=== PATIENT | female | born 1985 | race Caucasian/White ===

== ENCOUNTER → 2022-05-29 | Outpatient (CLI) | payer OTHER, SELFPAY ==
[2022-05-29 09:48] LABS: Hematocrit 33.1 % (37-47); Hemoglobin 10.8 g/dL (12.0-15.0); Mean Corp Hgb Conc 32.6 g/dL (32-36); Mean Corpuscular Volume 85.8 fL (81-99); Mean Platelet Vol. 11.7 fl (6.2-12.0); Platelet Count 181 K/mm3 (150-450); RBC Distribution Width CV 14.1 % (11.6-14.6); RBC Distribution Width SD 43.6 fl (35.1-43.9); Red Blood Count 3.86 M/mm3 (4.2-5.4); White Blood Count 7.7 K/mm3 (4.4-11.0)
[2022-05-29 10:15] LABS: ALB/GLOB Ratio 0.6 RATIO (0.9-2.4); AST(SGOT) 21 U/L (15-37); Alanine Aminotransfer ALT/SGPT 21 U/L (13-56); Albumin, Serum 2.4 g/dL (3.2-5.0); Alkaline Phosphatase 119 U/L (45-117); Anion Gap 9 (5-15); BUN 5 mg/dL (7-18); BUN/Creat Ratio 7.8 RATIO (10-20); Calcium,Total 8.7 mg/dL (8.5-10.1); Chloride 106 mmol/L (98-107); Creatinine, Serum 0.64 mg/dL (0.55-1.02); EST Glomerular Filtration Rate 112 mL/min (>60); Est Glom Filt Rate - Afr Amer 136 mL/min (>60); Globulin 3.8 g/dL (2.2-4.2); Glucose 100 mg/dL (74-106); Potassium 3.8 mmol/L (3.5-5.1); Protein, Total 6.2 g/dL (6.4-8.2); Sodium Level 138 mmol/L (136-145); Uric Acid 4.4 mg/dL (2.6-6.0)
[2022-05-29 10:37] LABS: Protein, Urine (Random) 16.9 mg/dL (<11.9); Protein:Creat Ratio 185 mg/g CRE (0-200)
== END | disposition home or self-care (01) ==
DX: R03.0 Elevated blood-pressure reading, without diagnosis of hypertension (principal)
CPT/HCPCS: 36415; 80053; 82570; 84156; 84550; 85027

== ENCOUNTER 2022-06-04 16:35 | Outpatient (CLI) | payer OTHER, SELFPAY ==
[2022-06-04] VITALS (11 sets, daily range): BP systolic 126–152; BP diastolic 84–92; PULSE 110–127; TEMP 37.2; O2SAT 98–100; BMI 34.2
[2022-06-04 17:23] LABS: Hematocrit 35.3 % (37-47); Hemoglobin 11.4 g/dL (12.0-15.0); Mean Corp Hgb Conc 32.3 g/dL (32-36); Mean Corpuscular Hgb 27.9 pg (27.0-32.0); Mean Corpuscular Volume 86.5 fL (81-99); Mean Platelet Vol. 11.5 fl (6.2-12.0); Platelet Count 194 K/mm3 (150-450); RBC Distribution Width CV 13.9 % (11.6-14.6); RBC Distribution Width SD 43.6 fl (35.1-43.9); Red Blood Count 4.08 M/mm3 (4.2-5.4)
[2022-06-04 17:37] LABS: AST(SGOT) 16 U/L (15-37); Alanine Aminotransfer ALT/SGPT 22 U/L (13-56); Creatinine, Serum 0.59 mg/dL (0.55-1.02); EST Glomerular Filtration Rate 124 mL/min (>60); Est Glom Filt Rate - Afr Amer 150 mL/min (>60); Protein, Urine (Random) 17.7 mg/dL (<11.9); Protein:Creat Ratio 194 mg/g CRE (0-200); Uric Acid 3.5 mg/dL (2.6-6.0)
--- NOTE | 2022-06-06 08:40 | OB.TRI.HP_ITS ---
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 Maternal obesity with BMI of 34. Gestational hypertension. No evidence of preeclampsia. NST is reactive. Labs are normal. Patient is to be discharged home to follow-up for an ultrasound and close follow-up and likely induction at 37 weeks. Report given to her primary digging machine operator.
== END 2022-06-04 18:15 | disposition home or self-care (01) ==
LOC: WPOUT 16:38 → WP 16:38
PROVIDERS: Referring Provider Obstetrics & Gynecology; Visit Provider Obstetrics & Gynecology
DX: O13.3 Gestational [pregnancy-induced] hypertension without significant proteinuria, third trimester (principal); O99.213 Obesity complicating pregnancy, third trimester; Z3A.36 36 weeks gestation of pregnancy
CPT/HCPCS: 36415; 59025; 59050; 82565; 82570; 84156; 84450; 84460; 84550; 85027; 99221; G0378

== ENCOUNTER → 2022-06-11 | Outpatient (CLI) | payer OTHER, SELFPAY ==
[2022-06-11 15:12] LABS: Hematocrit 35.8 % (37-47); Hemoglobin 11.7 g/dL (12.0-15.0); Mean Corp Hgb Conc 32.7 g/dL (32-36); Mean Corpuscular Hgb 27.9 pg (27.0-32.0); Mean Corpuscular Volume 85.4 fL (81-99); Mean Platelet Vol. 10.9 fl (6.2-12.0); POSITIVE MORPHOLOGY YES; Platelet Count 163 K/mm3 (150-450); RBC Distribution Width CV 14.3 % (11.6-14.6); RBC Distribution Width SD 43.7 fl (35.1-43.9); Red Blood Count 4.19 M/mm3 (4.2-5.4); White Blood Count 8.9 K/mm3 (4.4-11.0)
[2022-06-11 15:32] LABS: ALB/GLOB Ratio 0.7 RATIO (0.9-2.4); AST(SGOT) 18 U/L (15-37); Alanine Aminotransfer ALT/SGPT 20 U/L (13-56); Albumin, Serum 2.7 g/dL (3.2-5.0); Alkaline Phosphatase 149 U/L (45-117); Anion Gap 5 (5-15); BUN 7 mg/dL (7-18); Calcium,Total 9.5 mg/dL (8.5-10.1); Chloride 107 mmol/L (98-107); Creatinine, Serum 0.64 mg/dL (0.55-1.02); EST Glomerular Filtration Rate 113 mL/min (>60); Est Glom Filt Rate - Afr Amer 136 mL/min (>60); Globulin 4.1 g/dL (2.2-4.2); Glucose 90 mg/dL (74-106); Potassium 3.8 mmol/L (3.5-5.1); Protein, Total 6.8 g/dL (6.4-8.2); Sodium Level 135 mmol/L (136-145)
[2022-06-11 15:37] LABS: Scan Indicated on CBC? Y/N YES- FLAGS NOTED
== END | disposition home or self-care (01) ==
DX: O10.913 Unspecified pre-existing hypertension complicating pregnancy, third trimester (principal)
CPT/HCPCS: 36415; 80053; 84550; 85027

== ENCOUNTER 2022-06-13 06:48 | Inpatient (IN) | payer OTHER, SELFPAY ==
[2022-06-13] VITALS (25 sets, daily range): BP systolic 95–148; BP diastolic 43–90; PULSE 66–111; RESP 14–16; TEMP 36.4–37.3; O2SAT 97–99; BMI 34.5
[2022-06-13] MEDS: Lactated Ringers 1,000 ML 50 ML IV (07:35)
[2022-06-13 07:48] LABS: Absolute Neutrophil Count 5.1 X10^3/uL (2.0-7.7); Basophil# 0.02 X10^3/uL; Basophil% 0.3 % (0-1); Eosinophil# 0.02 X10^3/uL; Eosinophils% 0.3 % (0-5); Hematocrit 32.8 % (37-47); Lymphocyte % 19.9 % (19-41); Mean Corp Hgb Conc 33.5 g/dL (32-36); Mean Corpuscular Hgb 27.8 pg (27.0-32.0); Monocyte# 0.46 X10^3/uL; Monocyte% 6.5 % (0-10); NRBC Flagged by Analyzer 0 % (0-5); Neutrophil # 5.09 X10^3/uL (2.7-7.7); Neutrophil % 72.4 % (47-70); POSITIVE MORPHOLOGY YES; Platelet Count 174 K/mm3 (150-450); RBC Distribution Width CV 14.1 % (11.6-14.6); RBC Distribution Width SD 42.6 fl (35.1-43.9); Red Blood Count 3.95 M/mm3 (4.2-5.4)
[2022-06-13 07:49] LABS: Differential Indicated SCAN CRITERIA MET
[2022-06-13] MEDS: Oxytocin 15 Units/NS 250ml 15 UNITS/250 ML IV.SOLN 2 UNITS IV (08:00)
--- NOTE | 2022-06-13 08:51 | PCM.HP.OB ---
HPI - General General Date of Admission: 06/13/22 HPI Narrative LAURE SAMPLE, is a 37 F at 37.2 weeks gestation who presents as a scheduled induction of labor for gestational hypertension. She was receiving care with [facility] in [place] with plans to deliver at [facility]. Patient's blood pressures began to increase (140/150's over 90-100'S) and PIH labs completed that were within normal ranges. Patient denies any headaches, vision changes, dizziness, SOB or CP. Maternal Data Information LILLIE Calculator Estimated Delivery Date Method Current WG Current Estimate 07/02/22 Manual 37w 2d [facility] Medical History (Updated 06/13/22 @ 22:54 by Liza Bernal CNM) Gestational HTN Home Medications 06/13/22 [History Last Taken Unknown] aspirin 81 mg capsule mg 06/13/22 [History Last Taken Unknown] Allergy/AdvReac Type Severity Reaction Status Date / Time No Known Allergies Allergy Verified 06/13/22 08:05 Surgical History History of surgery Social History Smoking Status: Never smoker History Elective abortions Hx Para 0 Spontaneous abortions Hx # Term Pregnancies Ectopic pregnancies Hx # Pregnancies Multiple births # of living children Visit Details OB Flowsheet Initial Weight: Not Recorded Date <del>?</del> EGA Weight BP Urine Prot <del>?</del> Glucose FHR FuHt Pres Dilation <del>?</del> Effaced St Visit Note 06/13/22 <del>?</del> 37w 2d 207 lb 7.28 oz 137/89 128/83 136/85 130/81 114/76 131/80 130/80 146/90 133/76 148/68 111/63 113/61 103/68 113/60 114/43 115/73 100/59 100/68 95/62 114/67 <del>?</del> <del>?</del> ROS Eyes Eyes: Denies blurry vision, change in vision or spots in vision ENT HEENT: Denies dizziness or headache(s) Cardiovascular Cardiovascular: Denies abdominal pain, chest pain or dyspnea Respiratory/Chest Respiratory/Chest: Denies cough, dyspnea, shortness of breath at rest or shortness of breath with exertion Gastrointestinal Gastrointestinal: Denies abdominal pain, diarrhea or vomiting Genitourinary Genitourinary: Denies change in urinary stream, difficulty urinating or dysuria Musculoskeletal Musculoskeletal: Reports none Integumentary Integumentary: Denies rash Neurologic Neurologic: Denies dizziness, headache(s), memory loss or weakness Psychiatric Psychiatric: Reports none Vital Signs Vital Signs Vital Signs: 06/13/22 07:44 06/13/22 07:44 Pulse Rate 111 H Blood Pressure 137/89 H BP Systolic 137 BP Diastolic 89 Weight Weight: 207 lb 7.28 oz Body Mass Index (BMI) 34.5 Physical Exam Const alert, oriented x3 and no apparent distress General Appearance: cooperative Orientation / Consciousness: awake Exam Limitations: no limitations HEENT normocephalic Head and Scalp: normal to inspection Eyes General Eye: normal appearance of both eyes Neck full ROM and no lymphadenopathy Lymph Lymphatic: no lymphadenopathy noted Chest inspection of chest normal Resp normal respiratory effort, normal air movement and clear to auscultation bilaterally Effort and Inspection: able to speak in complete sentences and symmetric chest movement Cardio regular rate and regular rhythm GI normal to inspection, nondistended, normoactive bowel sounds Manual OB Exam: presentation cephalic Back/Spine normal ROM Extremity full ROM and no calf tenderness Skin no rashes or lesions noted General Skin Exam: no breakdown Neuro oriented x3 and CN's II-XII intact bilaterally Psych mental status grossly normal and thought process normal Labs Labs Labs: Blood Type O POSITIVE Antibody Screen NEGATIVE Hct 32.8 % (37-47) L Hgb 11.0 g/dL (12.0-15.0) L Syphilis Total Ab Non-reactive Assessment & Plan (1) 37 weeks gestation of : (2) Encounter for induction of labor: (3) Gestational HTN: (4) Anxiety: PLAN: Plan CE- 0.5/60/-3 GBS negative Refusing placement of Steele bulb and vaginal exams Start Pitocin IV at 2 mu/min and increase per policy Desires unmedicated labor and delivery Cat. 1 tracing, NST reactive Blood pressures stable at this time No s/s of preeclampsia Dr. Hodges aware of admission and plan of care
[2022-06-13 09:24] LABS: Syphilis Antibodies Non-reactive
[2022-06-13] MEDS: Sodium Citrate/Citric Acid 30 ML UDC PO (19:07)
[2022-06-13] MEDS: Acetaminophen 500 MG Tablet PO (19:07)
[2022-06-13] MEDS: LACTATED RINGERS 500 ML 999 ML IV (19:10)
--- NOTE | 2022-06-13 19:16 | PCM.PN.OB ---
Subjective Subjective Patient seen at bedside. Feeling contractions more frequently. Declines pain medications or nitrous oxide. Objective Data Objective Data Vital Signs: Vital Signs Temp Pulse BP Pulse Ox 99.0 F 75 148/68 H 99 06/13/22 18:45 06/13/22 18:49 06/13/22 18:49 06/13/22 15:16 Weight: 207 lb 7.28 oz Body Mass Index (BMI) 34.5 Intake & Output: Intake and Output for Last 24 Hours 06/11/22 06/12/22 06/13/22 23:59 23:59 23:59 Intake Total 131.17 / 131.17 Balance 131.17 / 131.17 Lab / Micro Data Result Diagrams: 06/13/22 07:35 Labs: Laboratory Results - last 24 hr 06/13/22 07:35: WBC 7.0, RBC 3.95 L, Hgb 11.0 L, Hct 32.8 L, MCV 83.0, MCH 27.8, MCHC 33.5, RDW Std Deviation 42.6, RDW Coeff of Bernardo 14.1, Plt Count 174, MPV 11.0, Immature Gran % (Auto) 0.600, Neut % (Auto) 72.4 H, Lymph % (Auto) 19.9, [place] % (Auto) 6.5, Eos % (Auto) 0.3, Baso % (Auto) 0.3, Absolute Neuts (auto) 5.1, Absolute Lymphs (auto) 1.40, Nucleated RBC % 0 06/13/22 07:35: Blood Type O POSITIVE, Antibody Screen NEGATIVE 06/13/22 07:35: Syphilis Total Ab Non-reactive Assessment & Plan (1) Anxiety: (2) Gestational HTN: (3) 37 weeks gestation of : (4) Encounter for induction of labor: PLAN: Plan Cat. 1 tracing, NST reactive Blood pressures stable Discussed R/B/A with CE and plan for induction- Verbal consent for CE 0.5/60/-3- no change since admission Recommended placement of ocampo bulb and patient refusing Pitocin at 18 mu/min IV Patient very upset and tearful over no cervical change and receiving Pitocin IV for several hours She is stating she is done with induction and the - would like a primary section. Myself and nursing spent a lot of time discussing R/B of C/S vs. and patient continues to verbalize wanting a primary section. Dr. Hodges notified and will be in route to discuss plan of care with patient
[2022-06-13] MEDS: Cefazolin 2 GM in 0.9% Normal Saline 100 ML IV (19:26)
--- NOTE | 2022-06-13 20:26 | EX.PCM.OBRPT ---
Maternal Data Information Final LILLIE: 07/02/22 Gestational age: 37&2 Details Operative Information Date of Procedure: 06/13/22 Pre-Operative Diagnosis: (1) Gestational hypertension (2) Elective section request Post-Operative Diagnosis: Same Indications Narrative: The patient was taken to the operating room where spinal anesthesia was placed & found to be adequate. She was prepped and draped in the dorsal supine position with a leftward tilt. A Pfannenstiel skin incision was made approximately 2 cm above the symphysis pubis and carried through to the underlying fascia with the scalpel. The fascia was incised incised in the midline and extended laterally with the Garcia scissors. The rectus muscles were in the midline and the peritoneum was entered carefully and bluntly. The peritoneal incision was stretched and the bladder blade was inserted. The uterine incision was made in a low transverse fashion with the scalpel and extended superiorly and inferiorly with blunt dissection. The 's head was brought to the incision in the flexed position and delivered without difficulty. The head was gently guided to allow delivery of the anterior and posterior shoulders. The body then delivered with fundal pressure in the standard fashion. The 3VC cord was clamped and cut in delayed fashion. The was handed off to the waiting pediatric clinical nurse specialist. The placenta was delivered with fundal massage and gentle traction in the standard fashion. The uterus was exteriorized and cleared of clots and debris. The uterine incision was closed with #1 Vicryl suture in a running locked fashion. Monocryl suture was used in an imbricating fashion. The incision was examined and was found to be hemostatic. The uterus was returned to the abdominal cavity. After irrigating the peritoneum was examined & confirmed hemostatic. The rectus muscle was examined and any bleeding was Bovie cauterized. The fascia was closed with PDS suture in a running standard fashion. The subcutaneous tissue was examining and any bleeding was Bovie cauterized. The subcutaneous tissue was reapproximated with interrupted sutures. The skin was closed in a subcuticular fashion by the ROUTING EQUIPMENT TENDER while I was present in the labor & delivery unit. The remainder of the procedure was performed by me with assistance. All sponge, lap, and needle counts were correct. The patient was taken to her room for recovery in a stable condition. Classification: MIGUEL Procedure Type: low transverse reading instructor #1: Kristine Sales Type of Anesthesia: Spinal Antibiotic Given: Ancef 2 grams IV x1 Drain: Steele to straight drain Estimated Blood Loss: 700ml Fluids Replaced: 1000ml Procedure Start Time: 19:51 Procedure Stop Time: 18:29 Findings Description of Procedure: Normal maternal uterus and adnexa Presentation: Positive for Vertex Amniotic Membrane Rupture Type: Artificial Amniotic Fluid Description: Clear Placental Delivery Description: Expressed Placenta Disposition: [facility] Cord Vessel Description: 3 Vessels Cord Entanglement: None A Gender: Female ([place], weight = 5-13) (1 minute): 8 (5 minute): 9 Delayed Cord Clamping: Yes Complications Complications: None
[2022-06-13] MEDS: Oxytocin 15 Units/NS 250ml 15 UNITS/250 ML IV.SOLN 83 UNITS IV (20:40)
[2022-06-13] MEDS: Ketorolac 30 MG/ML Syringe IV (20:59)
[2022-06-13] MEDS: Lactated Ringers 1,000 ML 100 ML IV (23:53)
[2022-06-14] VITALS (10 sets, daily range): BP systolic 100–116; BP diastolic 56–79; PULSE 67–116; RESP 15–18; TEMP 36.2–36.6; O2SAT 97–100
[2022-06-14] MEDS: Ondansetron 4 MG/2 ML Vial IV (01:28)
[2022-06-14] MEDS: 0.9% Saline Lock 10 ML Syringe IV ×3 (01:28→20:41)
[2022-06-14] MEDS: Lactated Ringers 1,000 ML 999 ML IV (03:40)
[2022-06-14] MEDS: Acetaminophen 500 MG Tablet 1000 MG PO ×4 (03:41→20:41)
--- NOTE | 2022-06-14 04:44 | NURSING ---
Pt encouraged to get up for first post op ambulation. Pt has been feeling lighted headed and feeling of passing out. BP has been WNL everytime pt has requested to have it checked. Pt also has been nauseous and had an emesis of 800cc. 1L fluid bolus given at 0330.
[2022-06-14 05:24] LABS: Hematocrit 30.6 % (37-47); Hemoglobin 9.2 g/dL (12.0-15.0); Mean Corp Hgb Conc 30.1 g/dL (32-36); Mean Corpuscular Hgb 27.4 pg (27.0-32.0); Mean Corpuscular Volume 91.1 fL (81-99); Mean Platelet Vol. 11.7 fl (6.2-12.0); Platelet Count 142 K/mm3 (150-450); RBC Distribution Width CV 14.4 % (11.6-14.6); RBC Distribution Width SD 47.4 fl (35.1-43.9); Red Blood Count 3.36 M/mm3 (4.2-5.4); White Blood Count 10.4 K/mm3 (4.4-11.0)
[2022-06-14] MEDS: Enoxaparin 40 MG/0.4 ML Syringe SC (08:05)
[2022-06-14] MEDS: Ketorolac 30 MG/ML Syringe IV ×3 (09:01→21:05)
[2022-06-14] MEDS: Senna/Docusate Sodium 1 Tablet PO (09:57)
--- NOTE | 2022-06-14 10:08 | PCM.PN.OB ---
Subjective Subjective Patient seen at bedside. Denies any pain. Feeling good. without support. Has not been out of bed and will be getting up for the first time soon. Denies any headache, vision changes, dizziness, SOB, or CP. Objective Data Objective Data Vital Signs: Vital Signs Temp Pulse Resp BP Pulse Ox O2 Del Method 97.8 F 71 18 115/79 99 Room Air 06/14/22 07:45 06/14/22 07:45 06/14/22 07:45 06/14/22 07:45 06/14/22 07:45 06/14/22 07:45 Oxygen Delivery Method Room Air Weight: 207 lb 7.28 oz Body Mass Index (BMI) 34.5 Intake & Output: Intake and Output for Last 24 Hours 06/12/22 06/13/22 06/14/22 23:59 23:59 23:59 Intake Total 1328.67 / 1328.67 1250 / 1250 Output Total 800 / 800 1215 / 1215 Balance 528.67 / 528.67 35 / 35 Lab / Micro Data Result Diagrams: 06/14/22 05:12 Labs: Laboratory Results - last 24 hr 06/14/22 05:12: WBC 10.4, RBC 3.36 L, Hgb 9.2 L, Hct 30.6 L, MCV 91.1 D, MCH 27.4, MCHC 30.1 L D, RDW Std Deviation 47.4 H, RDW Coeff of Bernardo 14.4, Plt Count 142 L, MPV 11.7 ROS Eyes Eyes: Denies blurry vision, change in vision or spots in vision ENT HEENT: Denies dizziness or headache(s) Cardiovascular Cardiovascular: Denies abdominal pain, chest pain or dyspnea Respiratory/Chest Respiratory/Chest: Denies cough, dyspnea, shortness of breath at rest or shortness of breath with exertion Gastrointestinal Gastrointestinal: Denies abdominal pain, diarrhea or vomiting Genitourinary Genitourinary: Denies change in urinary stream, difficulty urinating or dysuria Musculoskeletal Musculoskeletal: Reports none Integumentary Integumentary: Denies rash Neurologic Neurologic: Denies dizziness, headache(s), memory loss or weakness Physical Exam Narrative Dressing is dry and intact Const alert and no apparent distress General Appearance: cooperative and comfortable Exam Limitations: no limitations HEENT normocephalic Eyes General Eye: normal appearance of both eyes Neck full ROM General: normal visual inspection Chest Chest: symmetrical chest wall rise Resp normal respiratory effort and normal air movement Effort and Inspection: symmetric chest movement Auscultation: clear to auscultation bilaterally Cardio regular rate and regular rhythm GI normal to inspection, nondistended, normoactive bowel sounds Back/Spine normal ROM Extremity full ROM and no calf tenderness General Extremity: normal exam except as noted Skin no rashes or lesions noted Neuro CN's II-XII intact bilaterally Psych mental status grossly normal Assessment & Plan (1) Gestational HTN: (2) Status post primary low transverse section: (3) Anxiety: (4) Care and examination of lactating mother: PLAN: Plan POD 1 Primary C/S Pain control Ambulate and shower today support BP's stable and within normal ranges Anticipate discharge later tomorrow evening
--- NOTE | 2022-06-14 10:13 | CASEMGMT ---
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 Supplies: Reports well supplied for baby, baby shower missed due to early delivery but reports no needs Childcare: stay at home mother and providing childcare in her home for 2 other children, supportive grandparents and older siblings Transportation: No concerns Programs: None Children services/legal: None Behavioral health: Denies formal diagnoses but does report anxiety and depression during . Pt reports feeling very sick, losing weight, stress, lack of sleep and unplanned expenses throughout that resulted in stress and anxiety. No substance abuse concerns. Some family history of mental health concerns that are undiagnosed with maternal parents. Family/Social stressors: Unplanned difficult , job change, financial concerns during but are now resolved Support: Grandparents, taoist, and friends. very large supportive family reported Reviewed depression, shaken baby and safe sleeping information and resources provided. Patient given resources and referral information for counseling, crisis, and maternal helpline. Pt did report she had been feeling anxious and depressed throughout due to illness, pain, and stressors. Pt reports losing weight, being unable to eat, high blood pressure and heart rate concerns troughout . Pt reports she is older and was unplanned but she is feeling like a different person this morning. Pt apologized for demeanor during labor and delivery. Pt reports feeling very ill and distressed at the time. 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 Pt reports feeling connected with baby and presented appropriately. Pt was eating and reports it has been the first time she has eaten well in months. Pt was screened with depression questions which were negative for findings. Pt denies any feelings of not wanting to be here or SI. Pt was appropriate and presented with positive affect, happy mood, and excited for her older children to meet the baby this evening. No concerns during assessment. Plan: Baby to go home with FOB and MOB and no other services were requested or indicated at this time. Melissa Ayoub ELECTRONIC CONTROLS REPAIRER SUPERVISOR, RETAIL ADVISOR
--- NOTE | 2022-06-15 02:24 | PCM.DC.SUM ---
Providers Date of Admission: 06/13/22 Primary Care Physician: No Primary Care Phys Reason For Visit: PRIMARY Diagnosis Discharge Diagnosis (1) Gestational HTN: Status: Acute Code(s): O13.9 - Gestational [-induced] hypertension without significant proteinuria, unspecified trimester (2) Status post primary low transverse section: Status: Acute Code(s): Z98.891 - History of uterine scar from previous surgery (3) Care and examination of lactating mother: Status: Acute Code(s): Z39.1 - Encounter for care and examination of lactating mother Plan POD 2 Primary C/S Pain control Ambulate and shower today support BP's stable and within normal ranges D/C home with follow up this week in office for BP and incision check Medications at Discharge Home Medications 06/13/22 acetaminophen 500 mg tablet 1,000 mg PO Q6H #0 tabs 06/15/22 ibuprofen 600 mg tablet 600 mg PO Q6H #0 tabs 06/15/22 sennosides 8.6 mg-docusate sodium 50 mg tablet (Stool Softener-Stimulant Laxative) 1 - 2 tab PO DAILY #0 tabs 06/15/22 Hospital Course Operations section Summary of Care Provided Hospital Course: Patient had section. Hospital course was uneventful. Physical Exam Narrative Dressing is dry and intact Const alert and no apparent distress General Appearance: cooperative and comfortable Exam Limitations: no limitations HEENT normocephalic Eyes General Eye: normal appearance of both eyes Neck full ROM General: normal visual inspection Chest Chest: symmetrical chest wall rise Resp normal respiratory effort and normal air movement Effort and Inspection: symmetric chest movement Auscultation: clear to auscultation bilaterally Cardio regular rate and regular rhythm GI normal to inspection, nondistended, normoactive bowel sounds Back/Spine normal ROM Extremity full ROM and no calf tenderness General Extremity: normal exam except as noted Skin no rashes or lesions noted Neuro CN's II-XII intact bilaterally Psych mental status grossly normal Weight / BMI Weight Weight: 207 lb 7.28 oz Body Mass Index (BMI) 34.5 ABG / Lab / Microbiology Data Result Diagrams: 06/14/22 05:12 Laboratory: Laboratory Results - last 24 hr 06/14/22 05:12: WBC 10.4, RBC 3.36 L, Hgb 9.2 L, Hct 30.6 L, MCV 91.1 D, MCH 27.4, MCHC 30.1 L D, RDW Std Deviation 47.4 H, RDW Coeff of Bernardo 14.4, Plt Count 142 L, MPV 11.7 D/C Instructions Discharge Diet: No restrictions Discharge Activity: May Drive (2 weeks) and May Shower May resume sexual activity in: 6-8 weeks Weight Bearing Status: Weight bearing as tolerated Call your doctor if your incision/area has: Continuous Slow Oozing, Sudden Increased Bleeding, Increased Pain/ Swelling, Increased Redness, Foul Smelling Discharge and Swelling at the incision site Call your doctor if you observe: Fever of 101 or Higher, Numbness or Tingling, Using more than 1 pad per hour, Shortness of breath, Dizziness, Swelling in the ankles, Chest pain, Calf discomfort and Uncontrolled pain Suture Line Care: Avoid Pulling/Pushing Change Dressing in: leave in place till F/U Remove Dressing in: leave until fall off Please Follow Up With: Liza Bernal CNM When: 1 week for incision check Meaningful Use Info Meaningful Use Diagnoses (Choose all that apply): None applicable Discharge Plan Admission Admit Date/Time: 06/13/22 06:48 Primary Reason for Your Visit: Labor and Delivery Attending Provider: Debbie Hodges Primary Care Provider: Care Physician,Steffi Primary Discharge Orders/Prescriptions Prescriptions: New sennosides-docusate sodium [Stool Softener-Stimulant Laxat] 8.6-50 mg Tablet 1 - 2 tab PO DAILY Qty: 0 0RF acetaminophen 500 mg Tablet 1,000 mg PO Q6H Qty: 0 0RF ibuprofen 600 mg Tablet 600 mg PO Q6H Qty: 0 0RF Continued Discontinued aspirin 81 mg Capsule Referrals / Follow Up: Liza Bernal CNM [Med Staff - Adv Practice Prof] - Care Physician,No Primary [Primary Care Provider] - Disposition Disposition (needs filled in before D/C Order can be placed): Home, Self Care
[2022-06-15] MEDS: Ibuprofen 600 MG Tablet PO ×2 (02:26→08:31)
[2022-06-15 02:28] VITALS: BP 100/69; PULSE 67; RESP 14; TEMP 36.2
[2022-06-15] MEDS: Acetaminophen 500 MG Tablet 1000 MG PO (04:14)
[2022-06-15 05:40] LABS: Bedside Glucose 77 mg/dL (74-106)
[2022-06-15 08:00] VITALS: BP 118/73; PULSE 75; RESP 18; TEMP 37; O2SAT 99
[2022-06-15] MEDS: Enoxaparin 40 MG/0.4 ML Syringe SC (08:32)
[2022-06-15] MEDS: Senna/Docusate Sodium 1 Tablet PO (08:32)
--- NOTE | 2022-07-03 10:36 | NURSING ---
Edit made to admission pt profile. Corrected para from 0 to 2. Also documented the induction reason in correct place. AC
== END 2022-06-15 10:25 | disposition home or self-care (01) | DRG 788 ==
PROVIDERS: Advanced Practice Midwife; Admitting Provider Obstetrics & Gynecology; Visit Provider Obstetrics & Gynecology
DX: O13.4 Gestational [pregnancy-induced] hypertension without significant proteinuria, complicating childbirth (principal); F41.9 Anxiety disorder, unspecified; O99.344 Other mental disorders complicating childbirth; Z3A.37 37 weeks gestation of pregnancy; Z37.0 Single live birth
CPT/HCPCS: 59025; 59050; 82962; 85025; 85027; 86780; 86850; 86900; 86901; 94668; 99221; J7120; A4216; G0378; J2405

== ENCOUNTER → 2023-04-30 | Outpatient (CLI) | payer OTHER, SELFPAY ==
[2023-04-30 15:57] LABS: Absolute Lymphocyte Count 1.19 X10^3/uL (0.83-4.51); Basophil# 0.02 X10^3/uL; Basophil% 0.3 % (0-1); Eosinophil# 0.01 X10^3/uL; Eosinophils% 0.1 % (0-5); Hematocrit 37.6 % (37-47); Hemoglobin 12.3 g/dL (12.0-15.0); Lymphocyte # 1.19 X10^3/ul (0.83-4.51); Lymphocyte % 15.6 % (19-41); Mean Corp Hgb Conc 32.7 g/dL (32-36); Mean Corpuscular Hgb 26.5 pg (27.0-32.0); Mean Corpuscular Volume 80.9 fL (81-99); Mean Platelet Vol. 11.1 fl (6.2-12.0); Monocyte# 0.39 X10^3/uL; Monocyte% 5.1 % (0-10); NRBC Flagged by Analyzer 0 % (0-5); Neutrophil # 6.01 X10^3/uL (2.7-7.7); Neutrophil % 78.5 % (47-70); Platelet Count 243 K/mm3 (150-450); RBC Distribution Width CV 14.2 % (11.6-14.6); RBC Distribution Width SD 41.3 fl (35.1-43.9); Red Blood Count 4.65 M/mm3 (4.2-5.4); White Blood Count 7.7 K/mm3 (4.4-11.0)
[2023-04-30 16:58] LABS: Hemoglobin A1c 5.3 % (3.8-5.6)
[2023-04-30 17:07] LABS: HIV - WCH Non-Reactive (Nonreactive); Hepatitis B Surface Antigen Non-Reactive (Nonreactive); Hepatitis C Antibody Non-Reactive (Nonreactive); Rubella IgG Reactive (Nonreactive); Syphilis Antibodies Non-reactive
== END | disposition home or self-care (01) ==
PROVIDERS: Visit Provider Advanced Practice Midwife
DX: O09.529 Supervision of elderly multigravida, unspecified trimester (principal); Z3A.00 Weeks of gestation of pregnancy not specified
CPT/HCPCS: 36415; 83036; 85025; 86703; 86762; 86780; 86803; 86850; 86900; 86901; 87086; 87088; 87340

== ENCOUNTER → 2023-08-18 | Outpatient (CLI) | payer OTHER, SELFPAY ==
[2023-08-18 08:37] LABS: Glucose Challenge Gest 1H 50g 135 mg/dL (70-140)
[2023-08-18 08:59] LABS: Syphilis Antibodies Non-reactive
[2023-08-18 09:40] LABS: Absolute Lymphocyte Count 1.36 X10^3/uL (0.83-4.51); Absolute Neutrophil Count 4.9 X10^3/uL (2.0-7.7); Basophil# 0.02 X10^3/uL; Basophil% 0.3 % (0-1); Eosinophil# 0.04 X10^3/uL; Eosinophils% 0.6 % (0-5); Hematocrit 31.4 % (37-47); Hemoglobin 10.1 g/dL (12.0-15.0); Lymphocyte # 1.36 X10^3/ul (0.83-4.51); Lymphocyte % 20.2 % (19-41); Mean Corp Hgb Conc 32.2 g/dL (32-36); Mean Corpuscular Hgb 27.2 pg (27.0-32.0); Mean Corpuscular Volume 84.4 fL (81-99); Mean Platelet Vol. 11.4 fl (6.2-12.0); Monocyte# 0.36 X10^3/uL; Monocyte% 5.3 % (0-10); NRBC Flagged by Analyzer 0 % (0-5); Neutrophil # 4.91 X10^3/uL (2.7-7.7); Neutrophil % 72.9 % (47-70); Platelet Count 181 K/mm3 (150-450); RBC Distribution Width CV 14.6 % (11.6-14.6); RBC Distribution Width SD 44.3 fl (35.1-43.9); Red Blood Count 3.72 M/mm3 (4.2-5.4); White Blood Count 6.7 K/mm3 (4.4-11.0)
== END | disposition home or self-care (01) ==
LOC: LAB 07:56
PROVIDERS: Referring Provider Advanced Practice Midwife; Visit Provider Advanced Practice Midwife
DX: O09.522 Supervision of elderly multigravida, second trimester (principal); Z3A.24 24 weeks gestation of pregnancy
CPT/HCPCS: 36415; 82950; 85025; 86780

== ENCOUNTER → 2023-09-18 | Outpatient (CLI) | payer OTHER, SELFPAY ==
[2023-09-18 08:19] LABS: Hematocrit 31.8 % (37-47); Hemoglobin 10.1 g/dL (12.0-15.0); Mean Corp Hgb Conc 31.8 g/dL (32-36); Mean Corpuscular Hgb 26.2 pg (27.0-32.0); Mean Corpuscular Volume 82.6 fL (81-99); Mean Platelet Vol. 11.6 fl (6.2-12.0); Platelet Count 180 K/mm3 (150-450); RBC Distribution Width CV 14.5 % (11.6-14.6); RBC Distribution Width SD 42.3 fl (35.1-43.9); Red Blood Count 3.85 M/mm3 (4.2-5.4); White Blood Count 8.2 K/mm3 (4.4-11.0)
== END | disposition home or self-care (01) ==
PROVIDERS: Referring Provider Advanced Practice Midwife; Visit Provider Advanced Practice Midwife
DX: O09.523 Supervision of elderly multigravida, third trimester (principal); Z98.891 History of uterine scar from previous surgery; O99.013 Anemia complicating pregnancy, third trimester; Z3A.30 30 weeks gestation of pregnancy
CPT/HCPCS: 36415; 85027

== ENCOUNTER → 2023-10-19 | Outpatient (CLI) | payer OTHER, SELFPAY ==
[2023-10-19 09:52] LABS: Hematocrit 32.7 % (37-47); Hemoglobin 10.4 g/dL (12.0-15.0); Mean Corp Hgb Conc 31.8 g/dL (32-36); Mean Corpuscular Hgb 25.7 pg (27.0-32.0); Mean Corpuscular Volume 80.7 fL (81-99); Platelet Count 169 K/mm3 (150-450); RBC Distribution Width CV 15.3 % (11.6-14.6); RBC Distribution Width SD 44.2 fl (35.1-43.9); Red Blood Count 4.05 M/mm3 (4.2-5.4); White Blood Count 7.4 K/mm3 (4.4-11.0)
[2023-10-19 10:48] LABS: ALB/GLOB Ratio 0.6 RATIO (0.9-2.4); AST(SGOT) 16 U/L (15-37); Alanine Aminotransfer ALT/SGPT 15 U/L (13-56); Albumin, Serum 2.5 g/dL (3.2-5.0); Alkaline Phosphatase 113 U/L (45-117); Anion Gap 7 (5-15); BUN 4 mg/dL (7-18); BUN/Creat Ratio 7.2 RATIO (10-20); Calcium,Total 8.2 mg/dL (8.5-10.1); Chloride 108 mmol/L (98-107); Creatinine, Serum 0.56 mg/dL (0.55-1.02); EST Glomerular Filtration Rate 131 mL/min (>60); Est Glom Filt Rate - Afr Amer 158 mL/min (>60); Globulin 4.1 g/dL (2.2-4.2); Glucose 99 mg/dL (74-106); Potassium 3.6 mmol/L (3.5-5.1); Protein, Total 6.6 g/dL (6.4-8.2); Sodium Level 137 mmol/L (136-145); Uric Acid 3.8 mg/dL (2.6-6.0)
[2023-10-19 11:55] LABS: Microalbumin,Random Urine 82.7 mg/L (NO RANGE EST.)
[2023-10-20 14:29] LABS: Protein, Urine (Random) 90.3 mg/dL (<11.9); Protein:Creat Ratio 295 mg/g CRE (0-200)
== END | disposition home or self-care (01) ==
LOC: LAB 09:14
PROVIDERS: Referring Provider Advanced Practice Midwife; Visit Provider Advanced Practice Midwife
DX: R03.0 Elevated blood-pressure reading, without diagnosis of hypertension (principal)
CPT/HCPCS: 36415; 80053; 82043; 82570; 84156; 84550; 85027

== ENCOUNTER 2023-11-06 09:32 | Inpatient (IN) | payer OTHER, SELFPAY ==
--- NOTE | 2023-10-28 14:12 | HP.PCM.OB_ITS ---
History and Physical Date of Admission: 11/06/23 Expand All Collapse All Pre-Op History and Physical HPI: The patient is a 38 year old female presenting for pre-operative visit. She is scheduled for , for repeat cson 11/06/23. Procedure discussed along with risks, benefits and complications. Other alternatives discussed for management. Consent form signed? Yes. PAST MEDICAL HISTORY PAST MEDICAL HISTORY 04/30/2023: History of gestational hypertension No date: Hypertension Comment: In No date: PCOS (polycystic ovarian syndrome) No date: Vitamin D deficiency PAST SURGICAL HISTORY PAST SURGICAL HISTORY 06/13/2022: DELIVERY ONLY Comment: LTCS No date: DENTAL SURGERY HX Comment: [place] teeth CURRENT MEDICATIONS Current Outpatient Medications Medication Sig Dispense Refill ? ferrous sulfate 325 mg (65 mg iron) EC tablet Take 325 mg by mouth. ? aspirin, enteric coated (ASPIRIN, ENTERIC COATED) 81 mg EC tablet Take 81 mg by mouth once daily. ? PNV no.95/ferrous fum/folic ac ( ORAL) Take by mouth. ? Lactobacillus acidophilus (BACID) cap Take 1-2 capsules by mouth twice daily with meals. 0 No current facility-administered medications for this visit. ALLERGIES: Patient has no known allergies. PERSONAL HISTORY: SOCIAL HISTORY Social History Tobacco Use ? Smoking status: Never ? Smokeless tobacco: Never Vaping Use ? Vaping status: Never Used Substance Use Topics ? Alcohol use: No ? Drug use: No FAMILY HISTORY: FAMILY HISTORY FAMILY HISTORY Problem Relation Age of Onset ? Hypertension Father ? other (Other) Mother fibroids ? Cancer Brother Hodgkin's lymphoma ? other (Other) Sister fibroids, pelvic congestion syndrome ? Diabetes Maternal Grandfather ? other (Other) Maternal Grandmother Fibroids ? other (blood clots) Maternal Grandmother ? Alzheimer's Disease Paternal Grandfather ? Glaucoma Paternal Grandmother REVIEW OF SYMPTOMS: negative except as noted above PHYSICAL EXAMINATION: VITALS: Blood pressure 138/84, weight 103.4 kg (228 lb), last menstrual period 02/06/2023, not currently . GENERAL: The patient is well nourished, well hydrated in no acute distress. , The patient is oriented to time, place, and person. NECK: full range of motion ABD: gravid, non tender IMPRESSION: 38yo @ 37.5 weeks for planned repeat cs at 39 weeks PLAN: repeat cs at 39 weeks Pt has been counseled on risks/benefits and alternatives of surgery including but not limited to anesthesia, bleeding, infection, injury to pelvic structures including bowel, bladder, ureters and vessels. Pt wishes to proceed with surgery at this time. Discussed risk of transfusion with patient. Pt states I hope I bleed out on the table so I get my hysterectomy Discussed risk of hysterectomy with patient however discussed that this is very risky and will only be performed for lifesaving measure. Patient was adamant that she wants a hysterectomy at time of or at 6 weeks I discussed with patient that this is not warranted. I also discussed with the patient that in order to proceed with hysterectomy she must have a Pap smear as well as an endometrial biopsy patient is against any type of pelvic exam and will decline. I explained to the patient that I will not be performing a hysterectomy that is not indicated. I had a very long discussion with the patient about what warrants a hysterectomy. Patient is able to get second opinion. I have reviewed and updated past medical and surgical history, medications and allergies Sosa Brasher MD Routine Office Visit on 10/28/2023 Note shared with patient
[2023-11-06] VITALS (16 sets, daily range): BP systolic 99–123; BP diastolic 59–89; PULSE 70–91; RESP 16–18; TEMP 36.1–36.9; O2SAT 93–99; BMI 39.2
[2023-11-06] MEDS: Acetaminophen 500 MG Tablet 1000 MG PO ×2 (10:12→18:17)
[2023-11-06] MEDS: Lactated Ringers 1,000 ML 999 ML IV (10:20)
[2023-11-06 10:28] LABS: Absolute Lymphocyte Count 1.64 X10^3/uL (0.83-4.51); Absolute Neutrophil Count 4.8 X10^3/uL (2.0-7.7); Basophil# 0.01 X10^3/uL; Basophil% 0.1 % (0-1); Eosinophil# 0.02 X10^3/uL; Eosinophils% 0.3 % (0-5); Hematocrit 30.1 % (37-47); Hemoglobin 9.7 g/dL (12.0-15.0); Lymphocyte # 1.64 X10^3/ul (0.83-4.51); Lymphocyte % 23.5 % (19-41); Mean Corp Hgb Conc 32.2 g/dL (32-36); Mean Corpuscular Volume 80.7 fL (81-99); Mean Platelet Vol. 11.8 fl (6.2-12.0); Monocyte# 0.44 X10^3/uL; Monocyte% 6.3 % (0-10); NRBC Flagged by Analyzer 0 % (0-5); Neutrophil # 4.81 X10^3/uL (2.7-7.7); Neutrophil % 69.1 % (47-70); Platelet Count 159 K/mm3 (150-450); RBC Distribution Width CV 15.4 % (11.6-14.6); RBC Distribution Width SD 45.3 fl (35.1-43.9); Red Blood Count 3.73 M/mm3 (4.2-5.4)
[2023-11-06] MEDS: Lactated Ringers 1,000 ML 150 ML IV (11:12)
[2023-11-06] MEDS: Sodium Citrate/Citric Acid 30 ML UDC PO (12:07)
[2023-11-06] MEDS: Cefazolin 3 GM in 0.9% Normal Saline (100mL Bag) 100 ML IV (12:35)
--- NOTE | 2023-11-06 12:37 | OP.PCM_ITS ---
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 She was then placed in the supine position. She was prepped and draped in the normal sterile fashion. Anesthesia was found to be adequate. At this time a Pfannenstiel skin incision was made with a knife was carried down to the underlying layer of the fascia. The fascial incision was then extended laterally using opposing traction. Attention was then turned to the superior aspect of the fascial edge was grasped with 2 straight Leslee clamps tented up and the rectus muscle dissected off sharply. Rectus muscles were then in the midline bluntly and peritoneum was entered bluntly- defect noted on right side peritoneum and rectus. Gentle opposing traction was placed. At this time the vesicouterine peritoneum was identified. Scalpel was used to make a uterine incision in a low transverse fashion. The uterus was then entered bluntly gentle opposing traction was placed to extend this incision. Membranes were ruptured clear. Infant's head was brought to the uterine incision was delivered atraumatically- tight nuchal x 3 reduced. Infant was vigorous at delivery and delayed cord clamping performed. Cord was clamped and cut infant was handed to the waiting nursery team. The Placenta was removed from the uterus. The uterus remained in the intraabdominal cavity as it could not be delivered easily- The uterus was cleared of all clots and debris using a lap. At this time the uterine incision was reapproximated using #1 Vicryl in a running locked fashion. Hemostasis was appreciated. Gutters were cleared of all clots and debris. Uterine incision was reevaluated and noted to be of excellent hemostasis. hemoblast placed over incision. At this time the peritoneum and muscle was grasped with Kellys reapproximated using #2 Vicryl suture in a running fashion. defect closed on fascia and rectus muscle. Hemoblast placed over rectus. Fascia was then reapproximated using #1 PDS in a running fashion. Subcu layer was irrigated with NS, reapproximated with #2 0 plain gut suture in an interrupted fashion. Hemoblast placed. Subcu layer was closed using 4-0 Viryl in a subcu fashion. Dry sterile dressing was applied. Instrument lap needle count correct ?2. Anticipated normal postoperative course. Presentation: Positive for Vertex Amniotic Membrane Rupture Type: Artificial Amniotic Fluid Description: Clear Placental Delivery Description: Expressed Placenta Disposition: [facility] Cord Vessel Description: 3 Vessels Cord Entanglement: - (Tight around neck x 3) Nuchal Cord Compression: Without compression A Gender: Male (1 minute): 8 (5 minute): 9 Delayed Cord Clamping: Yes Complications Risks of Surgery Discussed w/Patient: Bleeding, Infection and Injury to surrounding structure(s) including bowel and bladder Complications: none
[2023-11-06] MEDS: Oxytocin 15 Units/NS 250ml 15 UNITS/250 ML IV.SOLN 83 UNITS IV (13:42)
[2023-11-06] MEDS: Ondansetron 4 MG/2 ML Vial IV (15:41)
[2023-11-06] MEDS: Lactated Ringers 1,000 ML 100 ML IV (16:53)
[2023-11-06 16:54] LABS: Syphilis Antibodies Non-reactive
[2023-11-06] MEDS: Ketorolac 30 MG/ML Syringe IV (19:35)
[2023-11-07] VITALS: BP 106/70; PULSE 72; RESP 16; TEMP 36.1; O2SAT 98
[2023-11-07] MEDS: Ketorolac 30 MG/ML Syringe IV (00:03)
[2023-11-07] MEDS: Acetaminophen 500 MG Tablet 1000 MG PO ×3 (00:03→13:20)
[2023-11-07 05:53] LABS: Hematocrit 25.6 % (37-47); Mean Corp Hgb Conc 31.3 g/dL (32-36); Mean Corpuscular Hgb 25.6 pg (27.0-32.0); Mean Corpuscular Volume 81.8 fL (81-99); Mean Platelet Vol. 12.1 fl (6.2-12.0); Platelet Count 131 K/mm3 (150-450); RBC Distribution Width CV 15.6 % (11.6-14.6); RBC Distribution Width SD 46.3 fl (35.1-43.9); Red Blood Count 3.13 M/mm3 (4.2-5.4); White Blood Count 9.1 K/mm3 (4.4-11.0)
[2023-11-07 08:48] VITALS: BP 116/74; PULSE 84; RESP 16; TEMP 36.3; O2SAT 100
[2023-11-07] MEDS: Ibuprofen 600 MG Tablet PO (08:54)
--- NOTE | 2023-11-07 10:49 | PN.OBGYN_ITS ---
Subjective Subjective Doing well per patient and nursing staff. Ambulating and taking PO without difficulty. Voiding and passing flatus. Pain controlled. , services for assistance. Denies headache, visual changes, chest pain, shortness of breath, leg pain or increased bleeding. Lochia normal. Objective Data Objective Data Vital Signs: Vital Signs Temp Pulse Resp BP Pulse Ox O2 Del Method 97.4 F L 84 16 116/74 100 Room Air 11/07/23 08:48 11/07/23 08:48 11/07/23 08:48 11/07/23 08:48 11/07/23 08:48 11/07/23 08:48 Oxygen Delivery Method Room Air Weight: 235 lb 10.786 oz Body Mass Index (BMI) 39.2 Intake & Output: Intake and Output for Last 24 Hours 11/05/23 11/06/23 11/07/23 23:59 23:59 23:59 Intake Total 2208.3 / 2208.3 1000 / 1000 Output Total 1750 / 1750 400 / 400 Balance 458.3 / 458.3 600 / 600 Lab / Micro Data 11/07/23 05:35 Labs: Laboratory Results - last 24 hr 11/06/23 10:05: Syphilis Total Ab Non-reactive, Blood Type O POSITIVE, Antibody Screen NEGATIVE 11/07/23 05:35: WBC 9.1, RBC 3.13 L, Hgb 8.0 L, Hct 25.6 L, MCV 81.8, MCH 25.6 L , MCHC 31.3 L, RDW Std Deviation 46.3 H, RDW Coeff of Bernardo 15.6 H, Plt Count 131 L, MPV 12.1 H ROS Constitutional Constitutional: Reports systems reviewed and no addt'l complaints, except as documented; Denies headache(s) Eyes Eyes: Denies acute decrease in peripheral vision, blurry vision or change in vision ENT HEENT: Reports systems reviewed and no addt'l complaints, except as documented Cardiovascular Cardiovascular: Denies chest pain or dizziness Respiratory/Chest Respiratory/Chest: Denies cough, dyspnea, dyspnea on exertion, shortness of breath at rest or shortness of breath with exertion Gastrointestinal Gastrointestinal: Denies abdominal pain, diarrhea, nausea or vomiting Genitourinary Genitourinary: Denies abdominal discomfort Musculoskeletal Musculoskeletal: Denies limited range of motion Integumentary Integumentary: Reports systems reviewed and no addt'l complaints, except as documented Neurologic Neurologic: Reports systems reviewed and no addt'l complaints, except as documented Psychiatric Psychiatric: Reports systems reviewed and no addt'l complaints, except as documented Endocrine Endocrinology: Reports systems reviewed and no addt'l complaints, except as documented Hematologic/Lymphatic Hematologic/Lymphatic: Reports systems reviewed and no addt'l complaints, except as documented Allergic/Immunologic Allergic/Immunologic: Reports systems reviewed and no addt'l complaints, except as documented Physical Exam Const alert and oriented x3 General Appearance: cooperative Orientation / Consciousness: awake, oriented to person, oriented to place and oriented to time Exam Limitations: no limitations HEENT normocephalic Head and Scalp: normal to inspection, normocephalic and atraumatic Face and Sinus: normal facial exam Eyes General Eye: normal appearance of both eyes Neck full ROM Chest Chest: symmetrical chest wall rise Resp normal respiratory effort and normal air movement Auscultation: clear to auscultation bilaterally Cardio regular rate, regular rhythm, S1 normal heart sound, S2 normal heart sound, no murmurs, no rub, no gallops and no clicks GI normal to inspection, nondistended, normoactive bowel sounds and non-tender appearance of the vagina normal Bladder / Kidney Exam: no CVA tenderness Back/Spine normal ROM Extremity normal to inspection and full ROM Skin no rashes or lesions noted Neuro CN's II-XII intact bilaterally and moves all extremities Sensorium / Orientation: awake, alert and oriented to person Assessment & Plan (1) Delivery by section: (2) Lactating mother: (3) Status post primary low transverse section: PLAN: Plan 1) Routine postoperative care 2) Pain management 3) Blood loss anemia, declines IV iron infusion, will take PO iron, asymptomatic 4) services 5) D/C home 6) Follow up for incision check
--- NOTE | 2023-11-07 10:52 | DS.PCM_ITS ---
Providers Date of Admission: 11/06/23 Primary Care Physician: Steffi Primary Care Phys Reason For Visit: REPEAT C SECTION/CSECTION DELIVERY Diagnosis Discharge Diagnosis (1) Delivery by section: Status: Acute (2) Lactating mother: Status: Acute Code(s): Z39.1 - Encounter for care and examination of lactating mother (3) Postoperative pain: Status: Acute Code(s): G89.18 - Other acute postprocedural pain (4) Status post repeat low transverse section: Status: Acute Code(s): Z98.891 - History of uterine scar from previous surgery Plan 1) Routine postoperative care 2) Pain management 3) Blood loss anemia, declines IV iron infusion, will take PO iron, asymptomatic 4) services 5) D/C home 6) Follow up for incision check Medications at Discharge Home Medications 1 tab PO DAILY 06/13/22 acetaminophen 500 mg tablet 1,000 mg (2 x 500 mg) PO Q6H #0 tabs 11/07/23 ibuprofen 600 mg tablet 600 mg PO Q6H #0 tabs 11/07/23 oxycodone 5 mg tablet 5 mg PO Q6H 7 days #10 tabs 11/07/23 Hospital Course Summary of Care Provided Minutes Spent on Discharge: 15 Hospital Course: Presented on 11/06/23 for repeat section. Discharge home on postoperative day one per patient request. acute blood loss anemia. Weight / BMI Weight Weight: 235 lb 10.786 oz Body Mass Index (BMI) 39.2 ABG / Lab / Microbiology Data 11/07/23 05:35 Laboratory: Laboratory Results - last 24 hr 11/06/23 10:05: Syphilis Total Ab Non-reactive, Blood Type O POSITIVE, Antibody Screen NEGATIVE 11/07/23 05:35: WBC 9.1, RBC 3.13 L, Hgb 8.0 L, Hct 25.6 L, MCV 81.8, MCH 25.6 L , MCHC 31.3 L, RDW Std Deviation 46.3 H, RDW Coeff of Bernardo 15.6 H, Plt Count 131 L, MPV 12.1 H D/C Instructions Discharge Diet: No restrictions May resume sexual activity in: 6 weeks Weight Bearing Status: Full weight bearing Lifting Restricted to (Lbs): 20 Call your doctor if your incision/area has: Continuous Slow Oozing, Sudden Increased Bleeding, Increased Pain/ Swelling, Increased Redness, Foul Smelling Discharge and Swelling at the incision site Call your doctor if you observe: Fever of 101 or Higher, Inability to urinate, Inability to have a bowel movement, Using more than 1 pad per hour, Shortness of breath, Dizziness, Fainting spells, Chest pain, Increased palpitations (irregular heartbeat), Calf discomfort and Uncontrolled pain Suture Line Care: Avoid Pulling/Pushing Remove Dressing in: 1 week Cleanse incision/area with: Keep Dressing Clean & Dry Meaningful Use Info Meaningful Use Meaningful Use Diagnoses (Choose all that apply): None applicable Ischemic Stroke Statin Dosing Therapy Reference: STATIN DOSE THERAPY REFERENCE: * Patients > 75 years receive moderate or high dose statin therapy. * Patients 75 years or YOUNGER should receive HIGH intensity statin dose unless contraindicated. You will be required to document reason for non-treatment if statin daily dose does not meet guidelines. HIGH DOSE STATIN THERAPY DAILY Atorvastatin > than or = to 40 mg Rosuvastatin > than or = to 20 mg Amlodipine + Atorvastatin > than or = to 2.5/40 mg Ezetimibe + Simvastatin 10/80 mg Simvastatin 80mg Discharge Plan Admission Admit Date/Time: 11/06/23 09:32 Primary Reason for Your Visit: Section Attending Provider: Sosa Stein Primary Care Provider: Steffi De Los Santos Primary Discharge Orders/Prescriptions Prescriptions: New acetaminophen 500 mg Tablet 1,000 mg PO Q6H Qty: 0 0RF ibuprofen 600 mg Tablet 600 mg PO Q6H Qty: 0 0RF oxycodone 5 mg Tablet 5 mg PO Q6H 7 Days Qty: 10 0RF Continued 1 tab PO DAILY Discontinued aspirin 81 mg capsule 81 mg PO DAILY Lactobacillus acidophilus Tablet 50 mmu cells PO DAILY Referrals / Follow Up: Care Physician,No Primary [Primary Care Provider] - Disposition Disposition (needs filled in before D/C Order can be placed): Home, Self Care
[2023-11-07 13:25] VITALS: BP 118/78; PULSE 89; RESP 16; TEMP 36.4; O2SAT 97
== END 2023-11-07 14:20 | disposition home or self-care (01) | DRG 788 ==
PROVIDERS: Admitting Provider Obstetrics & Gynecology; Referring Provider Obstetrics & Gynecology; Visit Provider Obstetrics & Gynecology
PROC: 10D00Z1 Extraction of Products of Conception, Low, Open Approach (ICD-10-PCS; CPT 59514; principal; 2023-11-06 11:45)
DX: O34.211 Maternal care for low transverse scar from previous cesarean delivery (principal); O99.214 Obesity complicating childbirth; O69.1XX0 Labor and delivery complicated by cord around neck, with compression, not applicable or unspecified; Z37.0 Single live birth; Z3A.39 39 weeks gestation of pregnancy
CPT/HCPCS: 59050; 85025; 85027; 86780; 86850; 86900; 86901; 99221; J7120; G0378; J2405

== ENCOUNTER → 2023-11-13 | Outpatient (CLI) | payer OTHER, SELFPAY ==
[2023-11-13 10:52] LABS: Hematocrit 28.8 % (37-47); Hemoglobin 8.8 g/dL (12.0-15.0); Mean Corp Hgb Conc 30.6 g/dL (32-36); Mean Corpuscular Hgb 25.5 pg (27.0-32.0); Mean Corpuscular Volume 83.5 fL (81-99); Mean Platelet Vol. 10.9 fl (6.2-12.0); Platelet Count 226 K/mm3 (150-450); RBC Distribution Width CV 15.8 % (11.6-14.6); RBC Distribution Width SD 47.6 fl (35.1-43.9); Red Blood Count 3.45 M/mm3 (4.2-5.4); White Blood Count 8.4 K/mm3 (4.4-11.0)
== END | disposition home or self-care (01) ==
LOC: LAB 10:37
PROVIDERS: Referring Provider Advanced Practice Midwife; Visit Provider Advanced Practice Midwife
DX: D64.9 Anemia, unspecified (principal)
CPT/HCPCS: 36415; 85027